=== PATIENT | female | born 1970 | race American Indian/Alaskan Native ===

== ENCOUNTER 2018-11-25 17:25 | Inpatient (IN) | payer MEDICARE ==
--- NOTE | 2018-11-25 17:56 | Emergency Department Report ---
ED Shortness of Breath HPI - General Chief Complaint: Nausea/Vomiting/Diarrhea Stated Complaint: N/V/D Time Seen by Provider: 11/25/18 17:38 Source: EMS Mode of arrival: Wheelchair Limitations: No Limitations - History of Present Illness Initial Comments: Patient is a 43-year-old emergency room with complaints of nausea vomiting diarrhea, lower extremity swelling, shortness of breath, weakness and chest pain rating to her right shoulder and abdominal distention 1 week. Patient states her symptoms are worsening. Patient states her chest pain is a 10 out of 10 and is radiating to her right shoulder. Patient states stabbing pain. Patient states the pain is better with rest and worse with exertion and movement. Patient states the shortness of breath is severe and is worsening and is better with rest and worse with exertion. Patient states history of CHF. Patient states she hasn't changed her diet or missed any medications. MD Complaint: shortness of breath, chest pain -: Sudden Severity: severe Pain Scale: 10 Consistency: constant Improves With: rest Worsens With: exertion, movement Known History Of: congestive heart failure Associated Symptoms: chest pain, lower abdominal swelling, nausea/vomiting Treatments Prior to Arrival: none - Related Data Home Oxygen Therapy: No Home Medications Medication Instructions Recorded Confirmed Last Taken Allopurinol 100 mg PO DAILY 11/26/18 11/26/18 Unknown Aspirin [Aspir-Low] 81 mg PO DAILY 11/26/18 11/26/18 Unknown Carvedilol [Coreg] 3.125 mg PO Q12HR 11/26/18 11/26/18 Unknown Ferrous Sulfate 325 mg PO Q48HR 11/26/18 11/26/18 Unknown Furosemide [Lasix TAB] 20 mg PO DAILY 11/26/18 11/26/18 Unknown Mag-Oxide 400 mg PO DAILY 11/26/18 11/26/18 Unknown Allergies Allergy/AdvReac Type Severity Reaction Status Date / Time No Known Allergies Allergy Unverified 11/25/18 17:35 ED Review of Systems ROS: Stated complaint: N/V/D Other details as noted in HPI Constitutional: weakness. denies: chills, fever Eyes: denies: eye pain, eye discharge, vision change ENT: denies: ear pain, throat pain Respiratory: shortness of breath, SOB with exertion, SOB at rest. denies: cough, wheezing Cardiovascular: chest pain. denies: palpitations Endocrine: no symptoms reported Gastrointestinal: nausea, vomiting, diarrhea. denies: abdominal pain Genitourinary: denies: urgency, dysuria, discharge Musculoskeletal: denies: back pain, joint swelling, arthralgia Skin: denies: rash, lesions Neurological: denies: headache, weakness, paresthesias Psychiatric: denies: anxiety, depression Hematological/Lymphatic: denies: easy bleeding, easy bruising ED Past Medical Hx - Past Medical History Previous Medical History?: Yes Hx Hypertension: Yes Hx Congestive Heart Failure: Yes Additional medical history: CJHF - Surgical History Past Surgical History?: Yes Additional Surgical History: BILATERAL ANKLES FX,TUBILIGATION - Family History Family history: no significant - Social History Smoking Status: Never Smoker Substance Use Type: None - Medications Home Medications: Home Medications Medication Instructions Recorded Confirmed Last Taken Type Allopurinol 100 mg PO DAILY 11/26/18 11/26/18 Unknown History Aspirin [Aspir-Low] 81 mg PO DAILY 11/26/18 11/26/18 Unknown History Carvedilol [Coreg] 3.125 mg PO Q12HR 11/26/18 11/26/18 Unknown History Ferrous Sulfate 325 mg PO Q48HR 11/26/18 11/26/18 Unknown History Furosemide [Lasix TAB] 20 mg PO DAILY 11/26/18 11/26/18 Unknown History Mag-Oxide 400 mg PO DAILY 11/26/18 11/26/18 Unknown History ED Physical Exam - General Limitations: No Limitations General appearance: alert, in no apparent distress - Head Head exam: Present: atraumatic, normocephalic - Eye Eye exam: Present: normal appearance, PERRL Pupils: Present: normal accommodation - ENT ENT exam: Present: mucous membranes moist - Neck Neck exam: Present: normal inspection - Respiratory Respiratory exam: Present: normal lung sounds bilaterally. Absent: respiratory distress - Cardiovascular Cardiovascular Exam: Present: regular rate, normal rhythm. Absent: systolic murmur, diastolic murmur, rubs, gallop - GI/Abdominal GI/Abdominal exam: Present: soft, normal bowel sounds - Extremities Exam Extremities exam: Present: full ROM, pedal edema. Absent: calf tenderness - Back Exam Back exam: Present: normal inspection - Neurological Exam Neurological exam: Present: alert, oriented X3 - Psychiatric Psychiatric exam: Present: normal affect, normal mood - Skin Skin exam: Present: warm, dry, intact, normal color. Absent: rash ED Course Vital Signs 11/25/18 11/25/18 11/25/18 17:28 18:02 18:03 Temperature 98.3 F 98.6 F Pulse Rate 101 H 99 H Respiratory 20 19 19 Rate Blood Pressure 109/78 Blood Pressure 99/74 [Left] O2 Sat by Pulse 100 100 100 Oximetry 11/25/18 11/25/18 11/25/18 18:46 19:16 23:17 Temperature Pulse Rate 100 H 99 H 99 H Respiratory 16 17 Rate Blood Pressure 99/74 109/79 Blood Pressure [Left] O2 Sat by Pulse 98 98 Oximetry 11/25/18 23:18 Temperature 98.6 F Pulse Rate 96 H Respiratory 16 Rate Blood Pressure 111/76 Blood Pressure [Left] O2 Sat by Pulse 96 Oximetry - Reevaluation(s) Reevaluation #1: discussed all results with patient. Patient admitted to the hospitalist service. Patient agrees with plan of care and admission. 11/25/18 21:33 - Consultations Consultation #1: Hospital was consulted for admission. Hospitalist to admit patient. Hospitalist to assume care patient. 11/25/18 21:34 ED Medical Decision Making - Lab Data Result diagrams: 11/25/18 17:58 11/25/18 17:58 - EKG Data -: EKG Interpreted by Me EKG shows normal: sinus rhythm, axis, intervals, QRS complexes, ST-T waves Rate: tachycardia - Radiology Data Radiology results: report reviewed, image reviewed interpreted by me: Cardiomegaly noted on chest x-ray. no acute findings FINAL REPORT EXAM: CT ANGIO CHEST HISTORY: sob COMPARISON: Chest x-ray from the same date. TECHNIQUE: Contiguous axial images were obtained. Additional sagittal and coronal reformatted images were obtained. Administration of IV contrast given per institution protocol. Images submitted for interpretation. Max intensity projection images. 100 cc Omnipaque 350. FINDINGS: Prominent cardiac enlargement. Small pericardial effusion measuring 1.5 centimeters in greatest thickness. No pulmonary embolus. No pathologically enlarged intrathoracic or axillary lymph nodes. Tracheobronchial tree is patent. Mild linear atelectasis at the lung bases. Trace right-sided pleural effusion. [id number]-[id number] degenerative changes of the thoracic spine. Mild diffuse body wall edema. Small to moderate amount of free fluid in the visualized upper abdomen. Reflux of contrast with hepatic veins concerning for right ventricular dysfunction. Nodular thickening of adrenal glands. IMPRESSION: No pulmonary embolus. Prominent cardiac enlargement with small pericardial effusion. Probable minimal basilar congestion. Mild septal thickening lung bases and trace right-sided pleural effusion. Mild diffuse body wall edema and small to moderate amount of ascites in the upper abdomen. - Medical Decision Making He is a 48-year-old female that presents emergency room with multiple complaints. Patient found to being a CHF exacerbation. Patient was also found to have elevated d-dimer and with the symptoms of shortness of breath a CT scan of the lungs was done. CTA was negative for PE. Chest x-ray shows cardiomegaly. BNP is elevated. Patient has complained of lower cavity edema. - Differential Diagnosis sob. cp chf exac. volume overload. edema Critical Care Time: Yes Critical care attestation.: If time is entered above; I have spent that time in minutes in the direct care of this critically ill patient, excluding procedure time. Critical Care Time: 45 minutes ED Disposition Clinical Impression: SOB (shortness of breath), Leg edema, Elevated d-dimer, Elevated brain natriuretic peptide (BNP) level Chest pain Qualifiers: Chest pain type: unspecified Qualified Code(s): R07.9 - Chest pain, unspecified CHF (congestive heart failure) Qualifiers: Heart failure type: unspecified Heart failure chronicity: acute on chronic Qu alified Code(s): I50.9 - Heart failure, unspecified Disposition: OP ADMIT IP TO THIS HOSP Is pt being admited?: Yes Does the pt Need Aspirin: No Condition: Critical Time of Disposition: 21:27
--- NOTE | 2018-11-25 18:32 | XRay Report ---
FINAL REPORT EXAM: XR CHEST 1V AP HISTORY: Dyspnea COMPARISON: None available. FINDINGS: Frontal view(s) of the chest obtained. Moderate severe cardiac silhouette enlargement. Lungs are mickey sly clear. No pneumothorax. IMPRESSION: Prominent enlargement of the cardiac silhouette. Pericardial effusion is not excluded. Lungs are mickey sly clear.
[2018-11-25 18:37] LABS: Creatine Kinase MB 1.9 ng/mL (0.0-4.0)
[2018-11-25 18:40] LABS: Alanine Aminotransferase 20 units/L (7-56); BUN/Creatinine Ratio 11; Blood Urea Nitrogen 11 mg/dL (7-17); Calcium 9.4 mg/dL (8.4-10.2); Hemolysis Index 3
[2018-11-25] MEDS ORDERED: ZOFRAN ONE (18:44)
[2018-11-25] MEDS ORDERED: ZOFRAN IV ONE (18:45)
[2018-11-25 19:09] LABS: Hematocrit 31.4 % (30.3-42.9); Hemoglobin 9.2 gm/dl (10.1-14.3); Mean Corpuscular HGB Conc 29 % (30-34); Mean Corpuscular Volume 69 fl (79-97); Mean Platelet Volume 9.2 fl (6-12); Platelet Count 189 K/mm3 (140-440); Red Blood Count 4.55 M/mm3 (3.65-5.03); Red Cell Distribution Width 22.7 % (13.2-15.2)
[2018-11-25 19:57] LABS: Bilirubin,Urine NEG (Negative); Blood,Urine NEG (Negative); Color,Urine Amber (Yellow); Mucus,Urine FEW /HPF
[2018-11-25 20:00] LABS: Protein,Urine >500 mg/dL (Negative)
--- NOTE | 2018-11-25 21:17 | Cat Scan Report ---
FINAL REPORT EXAM: CT ANGIO CHEST HISTORY: sob COMPARISON: Chest x-ray from the same date. TECHNIQUE: Contiguous axial images were obtained. Additional sagittal and coronal reformatted images were obtained. Administration of IV contrast given per institution protocol. Images submitted for in terpretation. Max intensity projection images. 100 cc Omnipaque 350. FINDINGS: Prominent cardiac enlargement. Small pericardial effusion measuring 1.5 centimeters in greatest thick ness. No pulmonary embolus. No pathologically enlarged intrathoracic or axillary lymph nodes. Tracheobronchial tree is patent. Mild linear atelectasis at the lung bases. Trace right-sided pleural effusion. Nudw-fo-zgrtzaxm degenerative changes of the thoracic spine. Mild diffuse body wall edema. Small to moderate amount of free fluid in the visualized upper abdomen. Reflux of contrast with hepa tic veins concerning for right ventricular dysfunction. Nodular thickening of adrenal glands. IMPRESSION: No pulmonary embolus. Prominent cardiac enlargement with small pericardial effusion. Probable minimal basilar congestion. Mild septal thickening lung bases and trace right-sided pleural effusion. Mild diffuse body wall edema and small to moderate amount of ascites in the upper abdomen.
[2018-11-25] MEDS ORDERED: LASIX IV ONE (21:26)
[2018-11-25] MEDS ORDERED: ZOFRAN IV PRN (22:24)
[2018-11-25] MEDS ORDERED: TYLENOL PO PRN (22:24)
[2018-11-25] MEDS ORDERED: SODIUM CHLORIDE FLUSH SYRINGE 10 ML IV PRN (22:24)
--- NOTE | 2018-11-25 22:28 | History and Physical Report ---
History of Present Illness Date of examination: 11/25/18 History of present illness: 48-year-old female with history of CHF, hypertension comes emergency room with complaints of swelling in her stomach and lower extremity edema, shortness of breath 2 weeks. Complaining of dyspnea and exertion, orthopnea. Also complai karen of right shoulder pain, stabbing, intermittent over 2 hours, no radiation, intensity 4/5, cannot identify exacerbating or relieving factors Review of systems Constitutional: no weight loss, chills, fever Ears, eyes, nose, mouth and throat: no nasal congestion, no nasal discharge, no sinus pressure, no vision change, no red eye. Neck: No neck pain or rigidity. Cardiovascular: no palpitations, chest pain Respiratory: no cough, +shortness of breath Gastrointestinal: no hematochezia, abdominal pain Genitourinary : no frequency , no hematuria Musculoskeletal: no joint swelling or muscle ache Integumentary: no rash, no pruritis Neurological: no parathesias, no focal weakness Endocrine: no cold or heat intolerance, no polyuria or polydipsia Hematologic/Lymphatic: no easy bruising, no easy bleeding, no gland swelling Allergic/Immunologic: no urticaria, no angioedema. PAST MEDICAL HISTORY: CHF, hypertension PAST SURGICAL HISTORY: Tubal ligation, ankle SOCIAL HISTORY: Denies alcohol, drugs, tobacco FAMILY HISTORY: Hypertension Medications and Allergies Allergies Allergy/AdvReac Type Severity Reaction Status Date / Time No Known Allergies Allergy Unverified 11/25/18 17:35 Home Medications Medication Instructions Recorded Confirmed Last Taken Type Ferrous Sulfate 325 mg PO Q48HR 11/26/18 11/26/18 Unknown History Mag-Oxide 400 mg PO DAILY 11/26/18 11/26/18 Unknown History RX: Allopurinol 100 mg PO DAILY 11/26/18 11/26/18 Unknown History RX: Aspirin [Aspir-Low] 81 mg PO DAILY 11/26/18 11/26/18 Unknown History RX: Carvedilol [Coreg] 3.125 mg PO Q12HR 11/26/18 11/26/18 Unknown History RX: Furosemide [Lasix TAB] 20 mg PO DAILY #30 tablet 11/29/18 Unknown Rx RX: Lisinopril [Zestril TAB] 2.5 mg PO QDAY #30 tab 11/29/18 Unknown Rx RX: Spironolactone [Aldactone] 25 mg PO QDAY #30 tablet 11/29/18 Unknown Rx Exam - Physical Exam Narrative exam: General Apperance: The patient lying in bed, breathing comfortable HEENT: Normocephalic, atraumatic. Pupils equally round and reactive to light, EOMI, no sclericterus or JVD or thyromegaly or nodule. , no carotid bruit, mucous membranes moist, no exudate or erythema, +jvd Heart: S1-S2, regular is rhythm Lungs: Crackles auscultation bilaterally, breathing comfortable Abdomen: Positive bowel sounds, soft, nontender, nondistended, no organomegaly Extremities:+ edema, NO cyanosis clubbing Skin: no rash, nodule, warm and dry Neuro: cranial nerves 2-12 intact, speech is fluent, motor/sensory intact - Constitutional Vitals: Temp Pulse Resp BP Pulse Ox 98.6 F 99 H 17 109/79 98 11/25/18 18:02 11/25/18 19:16 11/25/18 19:16 11/25/18 19:16 11/25/18 19:16 Results - Labs CBC & Chem 7: 11/28/18 04:33 11/28/18 04:33 Labs: Abnormal lab results 11/25/18 11/25/18 11/25/18 Range/Units 17:58 17:58 17:58 Hgb 9.2 L (10.1-14.3) gm/dl MCV 69 L (79-97) fl MCH 20 L (28-32) pg MCHC 29 L (30-34) % RDW 22.7 H (13.2-15.2) % D-Dimer 1952.64 H (0-234) ng/mlDDU Total Bilirubin 3.20 H (0.1-1.2) mg/dL NT-Pro-B Natriuret Pep (0-450) pg/mL 11/25/18 Range/Units 18:06 Hgb (10.1-14.3) gm/dl MCV (79-97) fl MCH (28-32) pg MCHC (30-34) % RDW (13.2-15.2) % D-Dimer (0-234) ng/mlDDU Total Bilirubin (0.1-1.2) mg/dL NT-Pro-B Natriuret Pep 8051 H (0-450) pg/mL - Imaging and Cardiology EKG: image reviewed Chest x-ray: report reviewed CT scan - chest: report reviewed Assessment and Plan Assessment CHF exacerbation, acute on chronic, probably diastolic Hypertension Plan Admit to medicine Diurese with IV Lasix start Beta angeli, LALA inhibitor, aspirin Check cardiac enzymes, echo Monitor I's and O's, daily weight Consult cardiology, DVT prophylaxis
[2018-11-26 05:40] LABS: Basophils % (Auto) 0.6 % (0.0-1.8); Eosinophils # (Auto) 0.1 K/mm3 (0.0-0.4); Eosinophils % (Auto) 0.9 % (0.0-4.3); Lymphocytes # (Auto) 1.2 K/mm3 (1.2-5.4); Lymphocytes % (Auto) 19.1 % (13.4-35.0); Mean Corpuscular HGB Conc 30 % (30-34); Monocytes # (Auto) 0.6 K/mm3 (0.0-0.8); Monocytes % (Auto) 9.4 % (0.0-7.3); Platelet Count 168 K/mm3 (140-440); Red Blood Count 4.27 M/mm3 (3.65-5.03)
[2018-11-26 05:46] LABS: Hematocrit 29.3 % (30.3-42.9); Hemoglobin 8.8 gm/dl (10.1-14.3); Mean Corpuscular Volume 69 fl (79-97); Red Cell Distribution Width 22.9 % (13.2-15.2)
[2018-11-26 05:57] LABS: Creatine Kinase MB 1.6 ng/mL (0.0-4.0)
[2018-11-26 06:02] LABS: BUN/Creatinine Ratio 12; Blood Urea Nitrogen 12 mg/dL (7-17); Calcium 9.1 mg/dL (8.4-10.2); Hemolysis Index 0
[2018-11-26] MEDS: LASIX IV SCH ×2 (06:26→18:20)
[2018-11-26] MEDS: ZESTRIL PO SCH (09:01)
[2018-11-26] MEDS: SODIUM CHLORIDE FLUSH SYRINGE 10 ML IV SCH ×2 (09:02→21:51)
[2018-11-26] MEDS: COREG PO SCH ×3 (09:02→22:15)
[2018-11-26] MEDS: LOVENOX SUB-Q SCH (09:02)
[2018-11-26] MEDS: BABY ASPIRIN PO SCH (09:03)
[2018-11-26] MEDS ORDERED: LOVENOX SUB-Q SCH (10:00)
--- NOTE | 2018-11-26 10:40 | Consultation ---
Addendum entered and electronically signed by VIET ANAND MD 11/26/18 18:07: Patient is admitted with heart failure except, fatigue, shortness of breath, low er extremity edema, ascites. Patient's echocardiogram demonstrates an end-stage dilated cardiomyopathy, with left ventricle ejection fraction less than 10%. In addition to optimal guideline directed medical therapy, we will add a trial of intravenous milrinone. Original Note: History of Present Illness Consult date: 11/26/18 Consult reason: congestive heart failure History of present illness: Patient is a 48 year old woman with a long standing history of dilated c ardiomyopathy which is followed by [facility]. Patient was brought to this hospital with complaints of shortness of breath, abdominal distention, lower extremity edema, admitted with CHF exacerbation. Cardiac consultation was requested. Patient admits she ran out of lasix 2 weeks ago. She denies chest pain and palpitations. Chest CT scan reports evidence of moderate ascities. No evidence of PE. An ECG is sinus tachycardia, no acute ischemic changes. Medications and Allergies Allergies Allergy/AdvReac Type Severity Reaction Status Date / Time No Known Allergies Allergy Unverified 11/25/18 17:35 Home Medications Medication Instructions Recorded Confirmed Last Taken Type Allopurinol 100 mg PO DAILY 11/26/18 11/26/18 Unknown History Aspirin [Aspir-Low] 81 mg PO DAILY 11/26/18 11/26/18 Unknown History Carvedilol [Coreg] 3.125 mg PO Q12HR 11/26/18 11/26/18 Unknown History Ferrous Sulfate 325 mg PO Q48HR 11/26/18 11/26/18 Unknown History Furosemide [Lasix TAB] 20 mg PO DAILY 11/26/18 11/26/18 Unknown History Mag-Oxide 400 mg PO DAILY 11/26/18 11/26/18 Unknown History Active Meds: Active Medications Acetaminophen (Tylenol) 650 mg PO Q4H PRN PRN Reason: Pain MILD(1-3)/Fever >100.5/TYLER Last Admin: 11/26/18 06:36 Dose: 650 mg Documented by: Aspirin (Baby Aspirin) 81 mg PO QDAY [facility] Last Admin: 11/26/18 09:03 Dose: 81 mg Documented by: Carvedilol (Coreg) 3.125 mg PO BID [facility] Last Admin: 11/26/18 09:02 Dose: 3.125 mg Documented by: Enoxaparin Sodium (Lovenox) 40 mg SUB-Q QDAY@1000 [facility] Last Admin: 11/26/18 09:02 Dose: 40 mg Documented by: Furosemide (Lasix) 40 mg IV BID@0600,1800 [facility] Last Admin: 11/26/18 06:26 Dose: 40 mg Documented by: Lisinopril (Zestril) 2.5 mg PO QDAY [facility] Last Admin: 11/26/18 09:01 Dose: 2.5 mg Documented by: Ondansetron HCl (Zofran) 4 mg IV Q8H PRN PRN Reason: Nausea And Vomiting Sodium Chloride (Sodium Chloride Flush Syringe 10 Ml) 10 ml IV BID [facility] Last Admin: 11/26/18 09:02 Dose: 10 ml Documented by: Sodium Chloride (Sodium Chloride Flush Syringe 10 Ml) 10 ml IV PRN PRN PRN Reason: LINE FLUSH Physical Examination Vital Signs Temp Pulse Resp BP Pulse Ox 98.3 F 101 H 20 109/78 100 11/25/18 17:28 11/25/18 17:28 11/25/18 17:28 11/25/18 17:28 11/25/18 17:28 General appearance: no acute distress HEENT: Positive: PERRL Neck: Positive: trachea midline Cardiac: Positive: Reg Rate and Rhythm Lungs: Positive: Decreased Breath Sounds Neuro: Positive: Grossly Intact Abdomen: Positive: Distended Extremities: Present: +1 Edema Results 11/26/18 04:36 11/26/18 04:36 Cardiac Enzymes 11/25/18 11/25/18 11/26/18 Range/Units 17:58 17:58 04:36 AST 26 (5-40) units/L CK-MB (CK-2) 1.9 1.6 (0.0-4.0) ng/mL CBC 11/25/18 11/26/18 Range/Units 17:58 04:36 WBC 6.1 6.1 (4.5-11.0) K/mm3 RBC 4.55 4.27 (3.65-5.03) M/mm3 Hgb 9.2 L 8.8 L (10.1-14.3) gm/dl Hct 31.4 29.3 L (30.3-42.9) % Plt Count 189 168 (140-440) K/mm3 Lymph # [employer]el [employer] Driller 1.2 [place] # Jewel [employer] Driller 0.6 Eos # Jewel [employer] Driller 0.1 Baso # Jewel [employer] Driller 0.0 Comprehensive Metabolic Panel 11/25/18 11/26/18 Range/Units 17:58 04:36 Sodium 142 141 (137-145) mmol/L Potassium 4.3 4.1 (3.6-5.0) mmol/L Chloride 101.8 102.0 (98-107) mmol/L Carbon Dioxide 26 26 (22-30) mmol/L BUN 11 12 (7-17) mg/dL Creatinine 1.0 1.0 (0.7-1.2) mg/dL Glucose 94 90 (65-100) mg/dL Calcium 9.4 9.1 (8.4-10.2) mg/dL AST 26 (5-40) units/L ALT 20 (7-56) units/L Alkaline Phosphatase 59 (35-129) units/L Total Protein 8.0 (6.3-8.2) g/dL Albumin 4.0 (3.9-5) g/dL Assessment and Plan Acute systolic heart failure s/t to noncompliance with medications Ascities
--- NOTE | 2018-11-26 10:47 | Progress Note ---
Assessment and Plan Assessment and plan: Patient is a 48 yo woman history of CHF, hypertension who presents to [facility] ED with swelling in her stomach and lower extremity edema, shortness of breath 2 weeks, and orthopnea. Also complaining of right shoulder pain, stabbing, intermittent over 2 hours, no radiation, intensity 4/5, cannot identify ex acerbating or relieving factors -CHF exacerbation, acute on chronic, probably diastolic, Diuresis with IV Lasix, ECHO pending, -Right shoulder pains: supportive care -Hypertension, Check cardiac enzymes, History Interval history: Patient was seen and examined. Follow-up on current diagnosis of SOB. Overnight uneventful. Patient denies any chest pain, nausea/vomiting or severe headaches. Imaging, nursing note, chart, labs and old chart reviewed. Discussed with patient. Hospitalist Physical - Physical exam Narrative exam: Gen: ill appearing, NAD, Awake, Alert, Orientated HEENT: NCAT, EOMI, PERRL, OP Clear Neck: supple, no adenopathy, no thyromegaly, no JVD CVS/Heart: RRR, normal S1S2, pulses present bilaterally Chest/Lungs: diminished bs bilateral, Symmetrical chest expansion, good air entry bilaterally GI/Abdomen: abdominal distension, good bowel sounds, no guarding or rebound /Bladder: no suprapubic tenderness, no CVA or paraspinal tenderness Extermity/Skin: ble edema, no obvious rash MSK: FROM x 4 Neuro: CN 2-12 grossly intact, no new focal deficits Psych: calm - Constitutional Vitals: Temp Pulse Resp BP Pulse Ox 97.9 F 103 H 20 102/68 100 11/26/18 07:46 11/26/18 07:46 11/26/18 07:46 11/26/18 07:46 11/26/18 10:13 General appearance: Present: no acute distress Results - Labs CBC & Chem 7: 11/26/18 04:36 11/26/18 04:36 Labs: Laboratory Last Values WBC 6.1 K/mm3 (4.5-11.0) 11/26/18 04:36 RBC 4.27 M/mm3 (3.65-5.03) 11/26/18 04:36 Hgb 8.8 gm/dl (10.1-14.3) L 11/26/18 04:36 Hct 29.3 % (30.3-42.9) L 11/26/18 04:36 MCV 69 fl (79-97) L 11/26/18 04:36 MCH 21 pg (28-32) L 11/26/18 04:36 MCHC 30 % (30-34) 11/26/18 04:36 RDW 22.9 % (13.2-15.2) H 11/26/18 04:36 Plt Count 168 K/mm3 (140-440) 11/26/18 04:36 Lymph % (Auto) 19.1 % (13.4-35.0) 11/26/18 04:36 [place] % (Auto) 9.4 % (0.0-7.3) H 11/26/18 04:36 Eos % (Auto) 0.9 % (0.0-4.3) 11/26/18 04:36 Baso % (Auto) 0.6 % (0.0-1.8) 11/26/18 04:36 Lymph # 1.2 K/mm3 (1.2-5.4) 11/26/18 04:36 Dickinson # 0.6 K/mm3 (0.0-0.8) 11/26/18 04:36 Eos # 0.1 K/mm3 (0.0-0.4) 11/26/18 04:36 Baso # 0.0 K/mm3 (0.0-0.1) 11/26/18 04:36 Seg Neutrophils % 70.0 % (40.0-70.0) 11/26/18 04:36 Seg Neutrophils # 4.3 K/mm3 (1.8-7.7) 11/26/18 04:36 D-Dimer 1952.64 ng/mlDDU (0-234) H 11/25/18 17:58 Sodium 141 mmol/L (137-145) 11/26/18 04:36 Potassium 4.1 mmol/L (3.6-5.0) 11/26/18 04:36 Chloride 102.0 mmol/L (98-107) 11/26/18 04:36 Carbon Dioxide 26 mmol/L (22-30) 11/26/18 04:36 Anion Gap 17 mmol/L 11/26/18 04:36 BUN 12 mg/dL (7-17) 11/26/18 04:36 Creatinine 1.0 mg/dL (0.7-1.2) 11/26/18 04:36 Estimated GFR > 60 ml/min 11/26/18 04:36 BUN/Creatinine Ratio 12 % 11/26/18 04:36 Glucose 90 mg/dL (65-100) 11/26/18 04:36 Calcium 9.1 mg/dL (8.4-10.2) 11/26/18 04:36 Total Bilirubin 3.20 mg/dL (0.1-1.2) H 11/25/18 17:58 AST 26 units/L (5-40) 11/25/18 17:58 ALT 20 units/L (7-56) 11/25/18 17:58 Alkaline Phosphatase 59 units/L (35-129) 11/25/18 17:58 Total Creatine Kinase 95 units/L (30-135) 11/26/18 04:36 CK-MB (CK-2) 1.6 ng/mL (0.0-4.0) 11/26/18 04:36 CK-MB (CK-2) Rel Index 1.6 (0-4) 11/26/18 04:36 Troponin T < 0.010 ng/mL (0.00-0.029) 11/26/18 04:36 NT-Pro-B Natriuret Pep 8051 pg/mL (0-450) H 11/25/18 18:06 Total Protein 8.0 g/dL (6.3-8.2) 11/25/18 17:58 Albumin 4.0 g/dL (3.9-5) 11/25/18 17:58 Albumin/Globulin Ratio 1.0 % 11/25/18 17:58 Urine Color Tawny (Yellow) 11/25/18 Unknown Urine Turbidity Clear (Clear) 11/25/18 Unknown Urine pH 5.0 (5.0-7.0) 11/25/18 Unknown Ur Specific [place] 1.027 (1.003-1.030) 11/25/18 Unknown Urine Protein >500 mg/dL (Negative) 11/25/18 Unknown Urine Glucose (UA) 50 mg/dL (Negative) 11/25/18 Unknown Urine Ketones Tr mg/dL (Negative) 11/25/18 Unknown Urine Blood Neg (Negative) 11/25/18 Unknown Urine Nitrite Neg (Negative) 11/25/18 Unknown Urine Bilirubin Neg (Negative) 11/25/18 Unknown Urine Urobilinogen 2.0 mg/dL (<2.0) 11/25/18 Unknown Ur Leukocyte Esterase Neg (Negative) 11/25/18 Unknown Urine WBC (Auto) 1.0 /HPF (0.0-6.0) 11/25/18 Unknown Urine RBC (Auto) 3.0 /HPF (0.0-6.0) 11/25/18 Unknown U Epithel Cells (Auto) 2.0 /HPF (0-13.0) 11/25/18 Unknown Urine Mucus Few /HPF 11/25/18 Unknown
[2018-11-26] MEDS: MILRINONE-D5W 20 MG/100 ML 20 MG/100 ML BAG IV SCH (13:35)
[2018-11-26 23:15] LABS: Bilirubin,Urine NEG (Negative); Blood,Urine NEG (Negative); Color,Urine Yellow (Yellow); Mucus,Urine FEW /HPF; Protein,Urine <15 mg/dL mg/dL (Negative); WBC,Urine < 1.0 /HPF (0.0-6.0)
[2018-11-27] MEDS: MILRINONE-D5W 20 MG/100 ML 20 MG/100 ML BAG IV SCH ×2 (02:47→17:50)
[2018-11-27] MEDS: LASIX IV SCH ×3 (05:14→17:32)
[2018-11-27 06:09] LABS: Mean Corpuscular HGB Conc 30 % (30-34); Platelet Count 166 K/mm3 (140-440); Red Blood Count 4.52 M/mm3 (3.65-5.03)
[2018-11-27 06:11] LABS: Hematocrit 30.9 % (30.3-42.9); Hemoglobin 9.1 gm/dl (10.1-14.3); Mean Corpuscular Volume 68 fl (79-97)
[2018-11-27 06:22] LABS: BUN/Creatinine Ratio 13; Blood Urea Nitrogen 12 mg/dL (7-17); Calcium 8.5 mg/dL (8.4-10.2); Hemolysis Index 2
--- NOTE | 2018-11-27 08:50 | Progress Note ---
Addendum entered and electronically signed by VIET ANAND MD 11/27/18 11:54: Patient is diuresing well, feeling much better this morning after initiation of intravenous inotropic therapy. Continue current management. Original Note: Assessment and Plan Acute systolic heart failure s/t to noncompliance with medications Ascities, moderate on CTA Hypokalemia An echocardiogram demonstrates an end-stage dilated cardiomyopathy, with left ventricle ejection fraction less than 10%. Aggressive medical therapy for systolic heart failure to include a trial of intravenous milrinone. Beta blockers increased for suppression of NSVT. Subjective Date of service: 11/27/18 Interval history: Patient has no complaints. Admits she is diuresing well. 5 beat NSVT seen on telemetry overnight. Objective Vital Signs Temp Pulse Resp BP BP Pulse Ox 11/27/18 08:12 98.9 F 93 H 20 106/68 100 11/27/18 04:16 98.0 F 79 20 91/65 97 11/26/18 23:36 97.7 F 98 H 18 96/64 95 11/26/18 21:07 95 11/26/18 20:06 100 H 11/26/18 16:07 98.0 F 100 H 20 104/68 100 11/26/18 11:19 98.0 F 92 H 20 98/68 98 11/26/18 10:13 100 - Physical Examination General: No Apparent Distress HEENT: Positive: PERRL Neck: Positive: trachea midline Cardiac: Positive: Reg Rate and Rhythm Lungs: Positive: Decreased Breath Sounds Neuro: Positive: Grossly Intact Abdomen: Positive: Distended Extremities: Present: +1 Edema - Labs and Meds CBC 11/27/18 Range/Units 05:26 WBC 6.0 (4.5-11.0) K/mm3 RBC 4.52 (3.65-5.03) M/mm3 Hgb 9.1 L (10.1-14.3) gm/dl Hct 30.9 (30.3-42.9) % Plt Count 166 (140-440) K/mm3 Comprehensive Metabolic Panel 11/27/18 Range/Units 05:46 Sodium 141 (137-145) mmol/L Potassium 3.2 L D (3.6-5.0) mmol/L Chloride 99.3 (98-107) mmol/L Carbon Dioxide 27 (22-30) mmol/L BUN 12 (7-17) mg/dL Creatinine 0.9 (0.7-1.2) mg/dL Glucose 96 (65-100) mg/dL Calcium 8.5 (8.4-10.2) mg/dL
--- NOTE | 2018-11-27 09:07 | Progress Note ---
Assessment and Plan Assessment and plan: Patient is a 48 yo woman history of CHF, hypertension who presents to [facility] with swelling in her stomach and lower extremity edema, shortness of breath 2 weeks, and orthopnea. --Hypokalemia ; replenished per protocol and monitor levels --Acute on chronic systolic heart failure; Continue anti-failure medications, ejection fraction less than 10% On milrinone drip per cardiology --Dilated cardiomyopathy; continue current anti-failure medications Low-sodium diet, fluid restriction, cardiology following --Moderate ascites; due to fluid overload Continue diuretics, anti-failure medications --Hypertension; well controlled Continue current antihypertensives and when necessary medications --DVT prophylaxis; Lovenox Closely monitor the patient and adjust management as needed Discharge planning per case management, possible home health at discharge History Interval history: Patient seen and examined medical records reviewed Patient feels slightly better no new complaints Severe dilated cardiomyopathy, on anti-failure medications Alert awake and responding appropriately Vital signs reviewed Hospitalist Physical - Constitutional Vitals: Temp Pulse Resp BP Pulse Ox 98.9 F 93 H 20 106/68 100 11/27/18 08:12 11/27/18 08:12 11/27/18 08:12 11/27/18 08:12 11/27/18 08:57 General appearance: Present: mild distress, well-nourished, obese - EENT Eyes: Present: PERRL, EOM intact - Neck Neck: Present: supple, normal ROM - Respiratory Respiratory effort: normal Respiratory: bilateral: diminished, rales, negative: rhonchi, wheezing - Cardiovascular Rhythm: regular Heart Sounds: Present: S1 & S2 - Extremities Extremities: no ischemia Extremity abnormal: edema - Abdominal General gastrointestinal: soft, non-tender, non-distended, normal bowel sounds, other (ascites) - Integumentary Integumentary: Present: clear, warm - Psychiatric Psychiatric: appropriate mood/affect, cooperative - Neurologic Neurologic: CNII-XII intact, moves all extremities Results - Labs CBC & Chem 7: 11/27/18 05:26 11/27/18 05:46 Labs: Laboratory Last Values WBC 6.0 K/mm3 (4.5-11.0) 11/27/18 05:26 RBC 4.52 M/mm3 (3.65-5.03) 11/27/18 05:26 Hgb 9.1 gm/dl (10.1-14.3) L 11/27/18 05:26 Hct 30.9 % (30.3-42.9) 11/27/18 05:26 MCV 68 fl (79-97) L 11/27/18 05:26 MCH 20 pg (28-32) L 11/27/18 05:26 MCHC 30 % (30-34) 11/27/18 05:26 RDW 23.0 % (13.2-15.2) H 11/27/18 05:26 Plt Count 166 K/mm3 (140-440) 11/27/18 05:26 Lymph % (Auto) 19.1 % (13.4-35.0) 11/26/18 04:36 [place] % (Auto) 9.4 % (0.0-7.3) H 11/26/18 04:36 Eos % (Auto) 0.9 % (0.0-4.3) 11/26/18 04:36 Baso % (Auto) 0.6 % (0.0-1.8) 11/26/18 04:36 Lymph # 1.2 K/mm3 (1.2-5.4) 11/26/18 04:36 [place] # 0.6 K/mm3 (0.0-0.8) 11/26/18 04:36 Eos # 0.1 K/mm3 (0.0-0.4) 11/26/18 04:36 Baso # 0.0 K/mm3 (0.0-0.1) 11/26/18 04:36 Seg Neutrophils % 70.0 % (40.0-70.0) 11/26/18 04:36 Seg Neutrophils # 4.3 K/mm3 (1.8-7.7) 11/26/18 04:36 D-Dimer 1952.64 ng/mlDDU (0-234) H 11/25/18 17:58 Sodium 141 mmol/L (137-145) 11/27/18 05:46 Potassium 3.2 mmol/L (3.6-5.0) L D 11/27/18 05:46 Chloride 99.3 mmol/L (98-107) 11/27/18 05:46 Carbon Dioxide 27 mmol/L (22-30) 11/27/18 05:46 Anion Gap 18 mmol/L 02/05/19 05:46 BUN 12 mg/dL (7-17) 11/27/18 05:46 Creatinine 0.9 mg/dL (0.7-1.2) 11/27/18 05:46 Estimated GFR > 60 ml/min 11/27/18 05:46 BUN/Creatinine Ratio 13 % 11/27/18 05:46 Glucose 96 mg/dL (65-100) 11/27/18 05:46 Calcium 8.5 mg/dL (8.4-10.2) 11/27/18 05:46 Total Bilirubin 3.20 mg/dL (0.1-1.2) H 11/25/18 17:58 AST 26 units/L (5-40) 11/25/18 17:58 ALT 20 units/L (7-56) 11/25/18 17:58 Alkaline Phosphatase 59 units/L (35-129) 11/25/18 17:58 Total Creatine Kinase 95 units/L (30-135) 11/26/18 04:36 CK-MB (CK-2) 1.6 ng/mL (0.0-4.0) 11/26/18 04:36 CK-MB (CK-2) Rel Index 1.6 (0-4) 11/26/18 04:36 Troponin T < 0.010 ng/mL (0.00-0.029) 11/26/18 04:36 NT-Pro-B Natriuret Pep 8051 pg/mL (0-450) H 11/25/18 18:06 Total Protein 8.0 g/dL (6.3-8.2) 11/25/18 17:58 Albumin 4.0 g/dL (3.9-5) 11/25/18 17:58 Albumin/Globulin Ratio 1.0 % 11/25/18 17:58 Urine Color Yellow (Yellow) 11/26/18 23:00 Urine Turbidity Clear (Clear) 11/26/18 23:00 Urine pH 5.0 (5.0-7.0) 11/26/18 23:00 Ur Specific [place] 1.024 (1.003-1.030) 11/26/18 23:00 Urine Protein <15 mg/dl mg/dL (Negative) 11/26/18 23:00 Urine Glucose (UA) Neg mg/dL (Negative) 11/26/18 23:00 Urine Ketones Neg mg/dL (Negative) 11/26/18 23:00 Urine Blood Neg (Negative) 11/26/18 23:00 Urine Nitrite Neg (Negative) 11/26/18 23:00 Urine Bilirubin Neg (Negative) 11/26/18 23:00 Urine Urobilinogen 4.0 mg/dL (<2.0) 11/26/18 23:00 Ur Leukocyte Esterase Neg (Negative) 11/26/18 23:00 Urine WBC (Auto) < 1.0 /HPF (0.0-6.0) 11/26/18 23:00 Urine RBC (Auto) 2.0 /HPF (0.0-6.0) 11/26/18 23:00 U Epithel Cells (Auto) 2.0 /HPF (0-13.0) 11/26/18 23:00 Urine Mucus Few /HPF 11/26/18 23:00
[2018-11-27] MEDS ORDERED: K-DUR PO NR (10:30)
[2018-11-27] MEDS: LOVENOX SUB-Q SCH (10:59)
[2018-11-27] MEDS: SODIUM CHLORIDE FLUSH SYRINGE 10 ML IV SCH ×2 (10:59→21:24)
[2018-11-27] MEDS: BABY ASPIRIN PO SCH (11:00)
[2018-11-27] MEDS: ZESTRIL PO SCH (11:00)
[2018-11-27] MEDS: ALDACTONE PO SCH (11:00)
[2018-11-27] MEDS: COREG PO SCH ×2 (11:00→21:24)
[2018-11-28] MEDS: LASIX IV SCH ×2 (05:38→18:22)
[2018-11-28 06:03] LABS: Basophils % (Auto) 0.2 % (0.0-1.8); Eosinophils # (Auto) 0.1 K/mm3 (0.0-0.4); Eosinophils % (Auto) 2.1 % (0.0-4.3); Hematocrit 30.7 % (30.3-42.9); Hemoglobin 9.2 gm/dl (10.1-14.3); Lymphocytes # (Auto) 1.1 K/mm3 (1.2-5.4); Lymphocytes % (Auto) 18.6 % (13.4-35.0); Mean Corpuscular HGB Conc 30 % (30-34); Mean Corpuscular Volume 68 fl (79-97); Monocytes # (Auto) 0.5 K/mm3 (0.0-0.8); Monocytes % (Auto) 8.6 % (0.0-7.3); Platelet Count 174 K/mm3 (140-440); Red Blood Count 4.53 M/mm3 (3.65-5.03); Red Cell Distribution Width 23.1 % (13.2-15.2)
[2018-11-28 06:18] LABS: BUN/Creatinine Ratio 13; Blood Urea Nitrogen 10 mg/dL (7-17); Calcium 8.4 mg/dL (8.4-10.2); Hemolysis Index 3
--- NOTE | 2018-11-28 09:18 | Progress Note ---
Assessment and Plan Acute systolic heart failure s/t to noncompliance with medications Ascities, moderate on CTA Hypokalemia An echocardiogram demonstrates an end-stage dilated cardiomyopathy, with left ventricle ejection fraction less than 10%. Continue aggressive medical therapy for systolic heart failure to include a trial of intravenous milrinone for an additional 24hrs. Subjective Date of service: 11/28/18 Interval history: Patient has no complaints. Admits she is diuresing well. 4 beat NSVT seen on telemetry overnight. Objective Vital Signs Temp Pulse Resp BP BP Pulse Ox 11/28/18 08:43 98.3 F 90 16 105/72 99 11/28/18 04:36 97.0 F L 88 18 103/67 99 11/28/18 01:07 94 11/27/18 23:35 98.0 F 89 18 90/62 52 L 11/27/18 20:43 71 11/27/18 19:40 98.0 F 18 99/59 11/27/18 15:55 97.9 F 18 11/27/18 15:53 97.9 F 71 18 91/55 99 11/27/18 11:15 97.8 F 91 H 20 100/59 - Physical Examination General: No Apparent Distress HEENT: Positive: PERRL Neck: Positive: trachea midline Cardiac: Positive: Reg Rate and Rhythm Lungs: Positive: Decreased Breath Sounds Neuro: Positive: Grossly Intact Extremities: Present: +1 Edema - Labs and Meds CBC 11/28/18 Range/Units 04:33 WBC 5.9 (4.5-11.0) K/mm3 RBC 4.53 (3.65-5.03) M/mm3 Hgb 9.2 L (10.1-14.3) gm/dl Hct 30.7 (30.3-42.9) % Plt Count 174 (140-440) K/mm3 Lymph # 1.1 L (1.2-5.4) K/mm3 [place] # 0.5 (0.0-0.8) K/mm3 Eos # 0.1 (0.0-0.4) K/mm3 Baso # 0.0 (0.0-0.1) K/mm3 Comprehensive Metabolic Panel 11/28/18 Range/Units 04:33 Sodium 137 (137-145) mmol/L Potassium 3.7 (3.6-5.0) mmol/L Chloride 98.6 (98-107) mmol/L Carbon Dioxide 25 (22-30) mmol/L BUN 10 (7-17) mg/dL Creatinine 0.8 (0.7-1.2) mg/dL Glucose 84 (65-100) mg/dL Calcium 8.4 (8.4-10.2) mg/dL
[2018-11-28] MEDS: MILRINONE-D5W 20 MG/100 ML 20 MG/100 ML BAG IV SCH (09:20)
[2018-11-28] MEDS: COREG PO SCH ×2 (09:24→21:47)
[2018-11-28] MEDS: ZESTRIL PO SCH (09:24)
[2018-11-28] MEDS: ALDACTONE PO SCH (09:24)
[2018-11-28] MEDS: BABY ASPIRIN PO SCH (09:24)
[2018-11-28] MEDS: LOVENOX SUB-Q SCH (09:25)
[2018-11-28] MEDS: SODIUM CHLORIDE FLUSH SYRINGE 10 ML IV SCH ×2 (09:26→21:47)
[2018-11-28] MEDS ORDERED: MAGNESIUM SULFATE 3 GM in NACL 0.9% 100 ML IV ONE (10:00)
--- NOTE | 2018-11-28 18:30 | Progress Note ---
Assessment and Plan Assessment and plan: Patient is a 48 yo woman history of CHF, hypertension who presents to [facility] ED with worsening shortness of breath and worsening lower extremity edema, Also complains orthopnea. Worsening effort tolerance --Hypomagnesemia; replace per protocol and monitor levels --Hypokalemia ; corrected --Acute on chronic systolic heart failure; mild improvement Continue anti-failure medications,LVEF: 10-15 % Inotrops ,On milrinone drip per cardiology total 72 hours, finishing tomorrow --Dilated cardiomyopathy; continue current anti-failure medications Low-sodium diet, fluid restriction, cardiology following --Moderate ascites; due to fluid overload Continue diuretics, anti-failure medications --Hypertension; well controlled Continue current antihypertensives and when necessary medications --DVT prophylaxis; Lovenox --Physical therapy as tolerated after milrinone drip is completed Possible discharge tomorrow if stable Plan of care is reviewed with the patient and her nurse History Interval history: Patient seen and examined medical records reviewed Admitted with worsening shortness of breath and worsening leg edema Severe systolic congestive heart failure EF 10-15% Cardiology recommended milrinone drip for 72 hours Today's date to Patient not in acute distress Vital signs noted Hospitalist Physical - Constitutional Vitals: Temp Pulse Resp BP Pulse Ox 97.7 F 95 H 16 93/66 98 11/28/18 17:03 11/28/18 17:03 11/28/18 17:03 11/28/18 17:03 11/28/18 17:03 General appearance: Present: mild distress, well-nourished, obese - EENT Eyes: Present: PERRL, EOM intact - Neck Neck: Present: supple, normal ROM - Respiratory Respiratory effort: normal Respiratory: bilateral: diminished, rales, negative: rhonchi, wheezing - Cardiovascular Rhythm: regular Heart Sounds: Present: S1 & S2 - Extremities Extremities: no ischemia, No edema - Abdominal General gastrointestinal: soft, non-tender, non-distended, normal bowel sounds - Integumentary Integumentary: Present: clear, warm - Psychiatric Psychiatric: appropriate mood/affect, cooperative - Neurologic Neurologic: CNII-XII intact, moves all extremities Results - Labs CBC & Chem 7: 11/28/18 04:33 11/28/18 04:33 Labs: Laboratory Last Values WBC 5.9 K/mm3 (4.5-11.0) 11/28/18 04:33 RBC 4.53 M/mm3 (3.65-5.03) 11/28/18 04:33 Hgb 9.2 gm/dl (10.1-14.3) L 11/28/18 04:33 Hct 30.7 % (30.3-42.9) 11/28/18 04:33 MCV 68 fl (79-97) L 11/28/18 04:33 MCH 20 pg (28-32) L 11/28/18 04:33 MCHC 30 % (30-34) 11/28/18 04:33 RDW 23.1 % (13.2-15.2) H 11/28/18 04:33 Plt Count 174 K/mm3 (140-440) 11/28/18 04:33 Lymph % (Auto) 18.6 % (13.4-35.0) 11/28/18 04:33 [place] % (Auto) 8.6 % (0.0-7.3) H 11/28/18 04:33 Eos % (Auto) 2.1 % (0.0-4.3) 11/28/18 04:33 Baso % (Auto) 0.2 % (0.0-1.8) 11/28/18 04:33 Lymph # 1.1 K/mm3 (1.2-5.4) L 11/28/18 04:33 [place] # 0.5 K/mm3 (0.0-0.8) 11/28/18 04:33 Eos # 0.1 K/mm3 (0.0-0.4) 11/28/18 04:33 Baso # 0.0 K/mm3 (0.0-0.1) 11/28/18 04:33 Seg Neutrophils % 70.5 % (40.0-70.0) H 11/28/18 04:33 Seg Neutrophils # 4.1 K/mm3 (1.8-7.7) 11/28/18 04:33 D-Dimer 1952.64 ng/mlDDU (0-234) H 11/25/18 17:58 Sodium 137 mmol/L (137-145) 11/28/18 04:33 Potassium 3.7 mmol/L (3.6-5.0) 11/28/18 04:33 Chloride 98.6 mmol/L (98-107) 11/28/18 04:33 Carbon Dioxide 25 mmol/L (22-30) 11/28/18 04:33 Anion Gap 17 mmol/L 11/28/18 04:33 BUN 10 mg/dL (7-17) 11/28/18 04:33 Creatinine 0.8 mg/dL (0.7-1.2) 11/28/18 04:33 Estimated GFR > 60 ml/min 11/28/18 04:33 BUN/Creatinine Ratio 13 % 11/28/18 04:33 Glucose 84 mg/dL (65-100) 11/28/18 04:33 Calcium 8.4 mg/dL (8.4-10.2) 11/28/18 04:33 Magnesium 1.50 mg/dL (1.7-2.3) L 11/28/18 04:33 Total Bilirubin 3.20 mg/dL (0.1-1.2) H 11/25/18 17:58 AST 26 units/L (5-40) 11/25/18 17:58 ALT 20 units/L (7-56) 11/25/18 17:58 Alkaline Phosphatase 59 units/L (35-129) 11/25/18 17:58 Total Creatine Kinase 95 units/L (30-135) 11/26/18 04:36 CK-MB (CK-2) 1.6 ng/mL (0.0-4.0) 11/26/18 04:36 CK-MB (CK-2) Rel Index 1.6 (0-4) 11/26/18 04:36 Troponin T < 0.010 ng/mL (0.00-0.029) 11/26/18 04:36 NT-Pro-B Natriuret Pep 8051 pg/mL (0-450) H 11/25/18 18:06 Total Protein 8.0 g/dL (6.3-8.2) 11/25/18 17:58 Albumin 4.0 g/dL (3.9-5) 11/25/18 17:58 Albumin/Globulin Ratio 1.0 % 11/25/18 17:58 Urine Color Yellow (Yellow) 11/26/18 23:00 Urine Turbidity Clear (Clear) 11/26/18 23:00 Urine pH 5.0 (5.0-7.0) 11/26/18 23:00 Ur Specific [place] 1.024 (1.003-1.030) 11/26/18 23:00 Urine Protein <15 mg/dl mg/dL (Negative) 11/26/18 23:00 Urine Glucose (UA) Neg mg/dL (Negative) 11/26/18 23:00 Urine Ketones Neg mg/dL (Negative) 11/26/18 23:00 Urine Blood Neg (Negative) 11/26/18 23:00 Urine Nitrite Neg (Negative) 11/26/18 23:00 Urine Bilirubin Neg (Negative) 11/26/18 23:00 Urine Urobilinogen 4.0 mg/dL (<2.0) 11/26/18 23:00 Ur Leukocyte Esterase Neg (Negative) 11/26/18 23:00 Urine WBC (Auto) < 1.0 /HPF (0.0-6.0) 11/26/18 23:00 Urine RBC (Auto) 2.0 /HPF (0.0-6.0) 11/26/18 23:00 U Epithel Cells (Auto) 2.0 /HPF (0-13.0) 11/26/18 23:00 Urine Mucus Few /HPF 11/26/18 23:00
[2018-11-29] MEDS: MILRINONE-D5W 20 MG/100 ML 20 MG/100 ML BAG IV SCH (00:43)
[2018-11-29] MEDS: LASIX IV SCH ×3 (06:07→17:30)
--- NOTE | 2018-11-29 09:26 | Progress Note ---
Addendum entered and electronically signed by VIET ANAND MD 11/29/18 11:31: Cardiac status is stable, heart failure is optimally compensated. Okay to discontinue IV milrinone, discharge on guidelines directed medical therapy for outpatient follow-up in 3-5 days. Original Note: Assessment and Plan Acute systolic heart failure s/t to noncompliance with medications Ascities, moderate on CTA Hypokalemia An echocardiogram demonstrates an end-stage dilated cardiomyopathy, with left ventricle ejection fraction less than 10%. Continue medical therapy for systolic heart failure. Stable cardiac jj. Outpatient evaluation for indwelling cardiac defibrillator for primary prevention. Once discharged, patient advised to follow up with her refinery operator visbreaking at [place] within 3-5 days. Subjective Date of service: 11/29/18 Interval history: Patient reports her breathing is better. No reported events on telemetry overnight. Objective Vital Signs Temp Pulse Resp BP Pulse Ox 11/29/18 08:36 99.2 F 83 17 102/67 99 11/29/18 04:02 97.7 F 94 H 17 110/76 97 11/28/18 23:52 98.3 F 95 H 17 103/72 99 11/28/18 20:05 84 11/28/18 19:19 98.0 F 84 17 102/61 98 11/28/18 17:03 97.7 F 95 H 16 93/66 98 11/28/18 11:49 97.9 F 86 16 90/62 98 - Physical Examination General: No Apparent Distress HEENT: Positive: PERRL Neck: Positive: trachea midline Cardiac: Positive: Reg Rate and Rhythm Lungs: Positive: Decreased Breath Sounds Neuro: Positive: Grossly Intact Extremities: Present: +1 Edema
[2018-11-29] MEDS: BABY ASPIRIN PO SCH (09:30)
[2018-11-29] MEDS: LOVENOX SUB-Q SCH (09:30)
[2018-11-29] MEDS: SODIUM CHLORIDE FLUSH SYRINGE 10 ML IV SCH (09:31)
[2018-11-29] MEDS: ALDACTONE PO SCH ×2 (12:34→16:56)
[2018-11-29] MEDS: ZESTRIL PO SCH (12:34)
[2018-11-29] MEDS: COREG PO SCH (12:34)
--- NOTE | 2018-11-29 14:08 | Discharge Summary ---
Providers - Providers Date of Admission: 11/25/18 22:24 Date of discharge: 11/29/18 Attending physician: BERNABE BAXTER 11/25/18 22:24 Consult to Physician [CONS] Routine Comment: Consulting Provider: VIET ANAND Physician Instructions: Reason For Exam: chf Primary care physician: IRMA ANDREW Hospitalization Reason for admission: worsening shortness of breath/worsening leg edema Condition: Fair Pertinent studies: Chest x-ray; prominent enlargement of cardiac silhouette, pericardial effusion not excluded, lungs clear Echocardiogram; left ventricle ejection fraction less than 10-15% Moderate to severe TR Mild to moderate MR Mild AR, mild pulmonary hypertension CTA chest; no PE, cardiomegaly with mild pericardial effusion Minimal basal congestion, diffuse abdominal wall edema, moderate ascites Hospital course: Patient is a 48 yo woman history of CHF, hypertension was admitted through ED with worsening shortness of breath and worsening lower extremity edema, Also complains orthopnea. Worsening effort tolerance. Patient was not noted to be in severe cardiomyopathy with ejection fraction of 10-15%Patient was evaluated by cardiology, medications optimized, started on inotropes milrinone drip for 72 hours.Patient strongly advised to comply with medications diet and follow-up visits, patient's symptoms significantly improvedToday's comfortable alert awake oriented vital signs noted Physical examination prior to discharge did not show any new changes Advised to follow with material expeditor at [facility] in 3-4 days' time Patient also advised low-sodium diet and fluid restriction Patient verbalized understanding, stable at discharge May need cardiology evaluation for the AICD placement Discharge diagnosis; --Hypomagnesemia; corrected --Hypokalemia ; corrected --Acute on chronic systolic heart failure; mild improvement on anti-failure medications,LVEF: 10-15 % Received milrinone drip per cardiology total 72 hours, --Dilated cardiomyopathy; continue current anti-failure medications Low-sodium diet, fluid restriction, cardiology following --Moderate ascites; due to fluid overload Continue diuretics, anti-failure medications --Hypertension; patient's pressures are running low Closely monitor Patient is stable at discharge Disposition: TO HOME OR SELFCARE Time spent for discharge: 33 min Core Measure Documentation - Palliative Care Palliative Care/ Comfort Measures: Not Applicable - Core Measures Any of the following diagnoses?: heart failure - Heart Failure Discharge Requirements LALA/ARB for LVSD if EF <40%: Yes Beta angeli at discharge: Yes Exam - Constitutional Vitals: Temp Pulse Resp BP Pulse Ox 97.9 F 85 18 95/66 100 11/29/18 12:58 11/29/18 12:58 11/29/18 12:58 11/29/18 12:58 11/29/18 12:58 General appearance: Present: no acute distress, well-nourished - EENT Eyes: Present: PERRL, EOM intact - Neck Neck: Present: supple, normal ROM - Respiratory Respiratory effort: normal Respiratory: bilateral: diminished, rales, negative: rhonchi, wheezing - Cardiovascular Rhythm: regular Heart Sounds: Present: S1 & S2 - Extremities Extremities: no ischemia, No edema - Abdominal General gastrointestinal: Present: soft, non-tender, non-distended, normal bowel sounds - Integumentary Integumentary: Present: clear, warm - Musculoskeletal Musculoskeletal: strength equal bilaterally - Psychiatric Psychiatric: appropriate mood/affect, cooperative - Neurologic Neurologic: CNII-XII intact, moves all extremities Plan Activity: advance as tolerated Diet: other (cardiac diet) Additional Instructions: Advised to follow private material expeditor at [place] in 3-5 days. Strongly advised to comply with medications, diet, follow-up visits. Low-sodium diet, fluid restriction. If you have chest pain or shortness of breath, contact M.D. or go to emergency room Follow up with: IRMA ANDREW MD [Primary Care Provider] - 3-5 Days VIET ANAND MD [Staff Physician] - 3 Days Prescriptions: Furosemide [Lasix TAB] 20 mg PO DAILY #30 tablet Lisinopril [Zestril TAB] 2.5 mg PO QDAY #30 tab Spironolactone [Aldactone] 25 mg PO QDAY #30 tablet
[2018-11-29 16:16] VITALS: BP 99/75
== END 2018-11-29 18:12 | disposition home or self-care (01) | DRG 292 ==
LOC: EDBD → ED 17:25 → EDBD 17:25 → 4A 22:24
PROVIDERS: ADMIT Internal Medicine; ATTEND Internal Medicine
DX: I11.0 Hypertensive heart disease with heart failure (principal); R18.8 Other ascites; I27.20 Pulmonary hypertension, unspecified; E87.6 Hypokalemia; E83.42 Hypomagnesemia; I50.23 Acute on chronic systolic (congestive) heart failure; I42.0 Dilated cardiomyopathy; M25.511 Pain in right shoulder; Z79.82 Long term (current) use of aspirin; Z79.899 Other long term (current) drug therapy; Z98.51 Tubal ligation status; Z82.49 Family history of ischemic heart disease and other diseases of the circulatory system
CPT/HCPCS: 36415; 71045; 71275; 80048; 80053; 81001; 82550; 82553; 83735; 83880; 84484; 85025; 85027; 85379; 87116; 93005; 93010; 93306; G0378; J1650; J1940; J2260; J2405; J3475; Q9967